=== PATIENT | female | born 1945 ===

== ENCOUNTER 2024-12-10 14:05 | Outpatient (CLI) | payer MEDICARE ==
[~2024-12-10 14:05] MED LIST: Iopamidol 370 76% 100 ML VIAL ONE
[2024-12-10 14:21] LABS: Estimated GFR - POC 46.0
== END 2024-12-10 14:06 | disposition home or self-care (01) ==
LOC: CT 14:05
PROVIDERS: ATTEND Physician Assistant Medical
DX: K21.9 Gastro-esophageal reflux disease without esophagitis (principal); R10.13 Epigastric pain; K31.84 Gastroparesis; R10.33 Periumbilical pain; R11.0 Nausea; K57.30 Diverticulosis of large intestine without perforation or abscess without bleeding
CPT/HCPCS: 36415; 74177; 82565; Q9967